=== PATIENT | female | born 1955 | race Asian ===

== ENCOUNTER 2017-04-29 18:51 | Emergency (ER) | payer OTHER ==
--- NOTE | 2017-04-30 04:03 | ED Physician Chart ---
ED Chief Complaint/HPI - Patient Information Date Seen:: 04/29/17 Time Seen:: 18:51 Chief Complaint:: Skin abrasion of knee History of Present Illness:: Recent fall with skin abrasion of knee Allergies:: Allergies Allergy/AdvReac Type Severity Reaction Status Date / Time Penicillins [PCN] Allergy Verified 02/03/16 10:50 Historian:: Patient Review:: No other information ED Review of Systems - Review of Systems General/Constitutional: No fever Skin: Skin lesions, No bruising Head: No headache Eyes: No loss of vision ENT: No earache Neck: No neck pain Cardio Vascular: No chest pain Pulmonary: No SOB GI: No nausea G/U: No dysuria Musculoskeletal: Bone or joint pain (Slight pain ) Endocrine: No polyuria Psychiatric: No prior psych history Hematopoietic: No bruising Allergic/Immuno: No urticaria Neurological: No syncope ED Past Medical History - Past Medical History Past Medical History: DM Family History: None Social History: Non Smoker, No Alcohol, No Drug Use, Surgical History: None Psychiatricy History: None Medication: Reviewed Family Medical History - Family Member Mother History Unknown: Yes Ethnicity: Non- Living Status: Hx Family Hypertension: Yes Hx Family Diabetes: Yes ED Physical Exam - Physical Examination General/Constitutional: Awake Head: Atraumatic Eyes: Lids, conjuctiva normal ENMT: External ears, nose nl Neck: Nontender Respiratory: Nl effort/Exclusion Cardio Vascular: RRR GI: No tenderness/rebounding/guarding : No CVA tenderness Extremities: Full ROM Neuro/Psych: Alert/oriented Misc: Normal back ED Assessment - Assessment General Assessment: Skin abrasion, early cellulitis, no sign of fracture. This condition life threatening/high prob of deterioration: No ED Septic Shock - . Is Septic Shock (SBP<90, OR Lactate>4 mmol\L) present?: No ED Reassessment (Disposition) - Reassessment Reassessment Condition:: Improved - Diagnosis Diagnosis:: Abrasion - Aftercare/Follow up Instructions Medication Prescribed:: septra ds - Patient Disposition Discharge/Transfer:: Home Time:: 22:30 Condition at Disposition:: Stable, Improved ED Discharge Plan - Patient Disposition Admit/Discharge/Transfer: PT DISCHARGED HOME Condition at Disposition: Improved Instructions: Abrasion, [id number] Additional Instructions: FILL YOUR PRESCRIPTION AND TAKE IT DIRECTED. FOLLOW UP WITH YOUR REGULAR DOCTOR IF NOT FEELING ANY BETTER.
== END 2017-04-29 22:35 | disposition home or self-care (01) ==
LOC: EEVIPCON 18:51 → ER 18:51
DX: S80.219A Abrasion, unspecified knee, initial encounter (principal); E11.9 Type 2 diabetes mellitus without complications; X58.XXXA Exposure to other specified factors, initial encounter; Y93.89 Activity, other specified; Y92.89 Other specified places as the place of occurrence of the external cause; Y99.8 Other external cause status
CPT/HCPCS: Z7502

== ENCOUNTER 2018-03-06 09:59 | Emergency (ER) | payer OTHER ==
--- NOTE | 2018-03-06 10:33 | ED Physician Chart ---
ED Chief Complaint/HPI - Patient Information Date Seen:: 03/06/18 Time Seen:: 10:20 Chief Complaint:: right third and fourth toe pain History of Present Illness:: Yesterday while gardening patient dropped a brick on her right foot. Allergies:: Allergies Allergy/AdvReac Type Severity Reaction Status Date / Time Penicillins [PCN] Allergy Verified 02/03/16 10:50 Vitals:: Vital Signs - 8 hr 03/06/18 10:13 Temp 97.2 F HR 99 RR 16 BP 164/108 O2 Sat % 100 Historian:: Patient Review:: Nurse's Note Reviewed ED Review of Systems - Review of Systems General/Constitutional: No fever, No chills, No weight loss, No weakness, No diaphoresis, No edema, No loss of appetite Skin: No skin lesions, No rash, No bruising Head: No headache, No light-headedness Eyes: No loss of vision, No pain, No diplopia ENT: No earache, No nasal drainage, No sore throat, No tinnitus Neck: No neck pain, No swelling, No thyromegaly, No stiffness, No mass noted Cardio Vascular: No chest pain, No palpitations, No PND, No orthopnea, No edema Pulmonary: No SOB, No cough, No sputum, No wheezing GI: No nausea, No vomiting, No diarrhea, No pain, No melena, No hematochezia, No constipation, No hematemesis G/U: No dysuria, No frequency, No hematuria Musculoskeletal: Bone or joint pain, No back pain, No muscle pain Endocrine: No polyuria, No polydipsia Psychiatric: No prior psych history, No depression, No anxiety, No suicidal ideation Hematopoietic: No bruising, No lymphadenopathy Allergic/Immuno: No urticaria, No angioedema Neurological: No syncope, No focal symptoms, No weakness, No paresthesia, No headache, No seizure, No dizziness, No confusion, No vertigo ED Past Medical History - Past Medical History Past Medical History: HTN, DM Family History: Diabetes Melitus Social History: Non Smoker, No Alcohol Surgical History: other (cataract surgery) Psychiatricy History: None Family Medical History - Family Member Mother History Unknown: Yes Ethnicity: Non- Living Status: Hx Family Hypertension: Yes Hx Family Diabetes: Yes ED Physical Exam - Physical Examination General/Constitutional: Awake, Well-developed, well-nourished, Alert, No distress, GCS 15, Non-toxic appearing, Ambulatory Head: Atraumatic Eyes: Lids, conjuctiva normal, PERRL, EOMI Skin: Nl inspection, No rash, No skin lesions, No ecchymosis, Well hydrated, No lymphadenopathy ENMT: External ears, nose nl, Nasal exam nl, Lips, teeth, gums nl Neck: Nontender, Full ROM w/o pain, No JVD, No nuchal rigidity, No bruit, No mass, No stridor Respiratory: Nl effort/Exclusion, Clear to Auscultation, No Wheeze/Rhonchi/Rales Cardio Vascular: RRR, No murmur, gallop, rubs, NL S1 S2 GI: No tenderness/rebounding/guarding, No organomegaly, No hernia, Normal BS's, Nondistended, No mass/bruits, No McBurney tenderness : No CVA tenderness Other Extremities comments:: Right foot: Ecchymosis right fourth toe Neuro/Psych: Alert/oriented, DTR's symmetric, Normal sensory exam, Normal motor strength, Judgement/insight normal, Mood normal, Normal gait, No focal deficits Misc: Normal back, No paraspinal tenderness ED Labs/Radiology/EKG Results - Lab Results Results: Right foot: X-ray negative ED Septic Shock - . Is Septic Shock (SBP<90, OR Lactate>4 mmol\L) present?: No - <6hrs of presentation: Vital Signs: Vital Signs - 8 hr 03/06/18 10:13 Temp 97.2 F HR 99 RR 16 BP 164/108 O2 Sat % 100 ED Reassessment (Disposition) - Reassessment Reassessment Condition:: Unchanged - Diagnosis Diagnosis:: Contusion third and fourth toes right foot - Aftercare/Follow up Instructions Aftercare/Follow-Up Instructions:: Refer to Discharge Instructions - Patient Disposition Discharge/Transfer:: Home Condition at Disposition:: Stable, Unchanged
--- NOTE | 2018-03-06 12:11 | Diagnostic Imaging Report ---
Right foot 3 views Indication: Trauma Comparison: none Findings: There is a lucency and likely nondisplaced fracture involving the fourth distal phalanx which may extend to the proximal articular surface. Surrounding soft tissue swelling is noted. Mild to moderate degenerative changes are noted. Small distal Achilles and moderate plantar calcaneal spurs are noted. There is focal calcification along the proximal plantar fascia. Impression: Findings suggestive of a nondisplaced fracture of the fourth distal phalanx with likely extension to the proximal articular surface. Correlate clinically. Results were communicated to the referring team following exam on 03/06/2018 12:00 PM.
== END 2018-03-06 10:56 | disposition home or self-care (01) ==
LOC: ER 09:59
DX: S90.121A Contusion of right lesser toe(s) without damage to nail, initial encounter (principal); I10 Essential (primary) hypertension; E11.9 Type 2 diabetes mellitus without complications; Z88.0 Allergy status to penicillin; W20.8XXA Other cause of strike by thrown, projected or falling object, initial encounter; Y93.89 Activity, other specified; Y92.89 Other specified places as the place of occurrence of the external cause; Y99.8 Other external cause status
CPT/HCPCS: 73630-TC-RT; Z7502